=== PATIENT | female | born 1940 | race Caucasian/White ===

== ENCOUNTER 2017-04-17 06:12 | Emergency (ER) | payer MEDICARE ==
[~2017-04-17] VITALS: Ht 167.6 cm; Wt 88.2 kg
[~2017-04-17 06:12] MED LIST: ATOR40TA49 PO; NORC7.5T PO; [UNRECOGNIZED DRUG - CODE] PO
[2017-04-17 06:18] VITALS: BP 153/71; PULSE 90; RESP 18; TEMP 98.4; O2SAT 96
[2017-04-17 06:27] VITALS: BP 153/71; PULSE 90; RESP 18; TEMP 98.4; O2SAT 96
[2017-04-17 06:42] VITALS: BP 169/76; PULSE 79; RESP 16; RESP 18; O2SAT 95
[2017-04-17] MEDS ORDERED: ATOR40TA16 PO (06:42)
[2017-04-17] MEDS ORDERED: ASPI-516 CHEW (06:42)
--- NOTE | 2017-04-17 07:24 | PD ---
HPI Chief Complaint: Cold / Flu Symptoms Time Seen by Provider: 07:13 Travel History International Travel<30 days: No Contact w/Intl Traveler<30days: No Traveled to known affect area: No History of Present Illness HPI 76-year-old female presents with 3 day history of frontal headache, cough, congestion and general ill feeling. She states her son-in-law had similar symptoms. She states she tried Tylenol Sinus last night but has not taken anything today. She denies any other concurrent complaints. Quality is pressure. Severity is moderate. She denies thunderclap onset. She denies specific modifying factors. PFSH Past Medical History Arthritis: Yes Cardiovascular Problems: Yes High Cholesterol: Yes Diminished Hearing: No Endocrine: No Gastrointestinal Disorders: Yes (COLITIS) Genitourinary: No Musculoskeletal: Yes Neurologic: No Psychiatric: No Reproductive: No Respiratory: No Ulcer: Yes (ULCERATED COLITIS) Menopausal: Yes Social History Alcohol Use: Yes (OCCASIONAL) Tobacco Use: No Substance Use: No Allergies-Medications (Allergen,Severity, Reaction): Coded Allergies: No Known Allergies (Verified Adverse Reaction, Unknown, 04/17/17) Reported Meds & Prescriptions Reported Meds & Active Scripts Active Reported Aspirin 81 Mg Chew 81 Mg CHEW DAILY Atorvastatin (Atorvastatin Calcium) 40 Mg Tab 40 Mg PO HS Review of Systems Except as stated in HPI: all other systems reviewed are Neg Physical Exam Narrative general: No apparent distress, well appearing ENT: Posterior oropharyngx clear without exudate or erythema, external auditory canals are normal. Bilateral TM clear, nontender over sinuses Neck: Neck is supple, no meningeal signs, trachea is midline Cardiovascular: Regular rate and rhythm Lungs: No increased respiratory effort noted, CTA bilaterally Abdomen: Soft, NT Extremities: No edema, no pain with rom of all joints Neuro: Awake, motor and sensation grossly intact, normal speech Psychiatry: Appropriate insight Data Data Last Documented VS Vital Signs Date Time Temp Pulse Resp B/P (MAP) Pulse Ox O2 Delivery O2 Flow Rate FiO2 04/17/17 08:46 79 16 98 04/17/17 06:42 Room Air 04/17/17 06:[address] Brain W/O Iv Contrast(Rout) (04/17/17 ) Chest, Pa & Lat (04/17/17 ) Influenzae A/B Antigen (04/17/17 07:17) Ibuprofen (Motrin) (04/17/17 07:30) Ed Discharge Order (04/17/17 08:17) [facility] Medical Decision Making Medical Screen Exam Complete: Yes Emergency Medical Condition: Yes Medical Record Reviewed: Yes (Past history confirmed) Interpretation(s) flu negative, ct brain no acute, cxr no acute Differential Diagnosis Pneumonia, URI, sinusitis, allergies Narrative Course We will check influenza tests, chest x-ray and CT brain reevaluate after motrin ed workup no emergent process, Patient denies any new complaints and states that they are feeling better. Patient happy with care, all questions answered. Patient knows that follow up is incumbent on them and to return to the emergency room immediately if new or worsening symptoms develop. Patient given strict return precautions, vitals reviewed and are normal, agrees to further workup as an outpatient. Diagnosis Primary Impression: Upper respiratory infection Qualified Codes: J06.9 - Acute upper respiratory infection, unspecified Patient Instructions: General Instructions Additional Instructions: return as needed, follow with primary this week for recheck, alternate tylenol and motrin Med/Other Pt SpecificInfo: No Change to Meds Disposition: 01 DISCHARGE HOME Condition: Stable Desiree Nance MD Apr 17, 2017 07:24
[2017-04-17] MEDS ORDERED: IBUPROFEN 600 MG TAB PO ONE (07:30)
--- NOTE | 2017-04-17 08:09 | RADRPT ---
EXAM DATE/TIME: 04/17/2017 07:56 [facility] COMPARISON: No previous studies available for comparison. INDICATIONS : Frontal headache for three days. RADIATION DOSE: 58.05 CTDIvol (mGy) MEDICAL HISTORY : Hypercholesterolemia. Ulcers. Colitis. SURGICAL HISTORY : Orthopedic surgery. ENCOUNTER: Initial ACUITY: 3 days PAIN SCALE: 5/10 LOCATION: frontal TECHNIQUE: Multiple contiguous axial images were obtained of the head. Using automated exposure control and adj ustment of the mA and/or kV according to patient size, radiation dose was kept as low as reasonably a chievable to obtain optimal diagnostic quality images. DICOM format image data is available electro nically for review and comparison. FINDINGS: CEREBRUM: The ventricles are normal for age. No evidence of midline shift, mass lesion, hemorrhage or acute in farction. No extra-axial fluid collections are seen. POSTERIOR FOSSA: The cerebellum and brainstem are intact. The 4th ventricle is midline. The cerebellopontine angle i s unremarkable. EXTRACRANIAL: The visualized portion of the orbits is intact. SKULL: The calvaria is intact. No evidence of skull fracture. CONCLUSION: Negative noncontrast CT. Zain Ramirez MD on April 17, 2017 at 8:02 Board Certified Radiologist. This report was verified electronically.
--- NOTE | 2017-04-17 08:10 | RADRPT ---
EXAM DATE/TIME: 04/17/2017 07:50 [facility] COMPARISON: No previous studies available for comparison. INDICATIONS : Cough, congestion, headache x 3 days, MEDICAL HISTORY : Hypercholesterolemia. Ulcerative colitis. Arthritis. SURGICAL HISTORY : Left shoulder replacement. ENCOUNTER: Initial ACUITY: 3 days PAIN SCORE: 0/10 LOCATION: chest FINDINGS: PA and lateral views of the chest demonstrate the lungs to be symmetrically aerated without evidence of mass, infiltrate or effusion. ThAtheroscler calcifications are present in the aorta. The cardiome diastinal contours are unremarkable. Osseous structures are intact. Patient is status post left shou lder arthroplasty. CONCLUSION: No acute cardiopulmonary disease. Zain Ramirez MD on April 17, 2017 at 8:08 Board Certified Radiologist. This report was verified electronically.
== END 2017-04-17 08:47 | disposition home or self-care (01) ==
LOC: PHED 06:12
DX: J06.9 Acute upper respiratory infection, unspecified (principal); M19.90 Unspecified osteoarthritis, unspecified site; E78.00 Pure hypercholesterolemia, unspecified; Z79.82 Long term (current) use of aspirin
CPT/HCPCS: 70450; 71046; 87804; 99285